=== PATIENT | male | born 2000 | race Caucasian/White ===

== ENCOUNTER 2021-04-28 20:06 | Emergency (ER) | payer BC ==
[~2021-04-28] VITALS: Ht 177.8 cm; Wt 79.4 kg
[2021-04-28] MEDS ORDERED: EPIPEN0.3 MG/0.1 IM (22:02)
[2021-04-28] MEDS ORDERED: MEDROLDOSEPACK PO (22:02)
[2021-04-28 22:22] VITALS: BP 140/90
== END 2021-04-28 22:23 | disposition home or self-care (01) ==
LOC: M.ERS 20:06
DX: R22.0 Localized swelling, mass and lump, head (principal); T78.1XXA Other adverse food reactions, not elsewhere classified, initial encounter; R06.02 Shortness of breath; Z88.1 Allergy status to other antibiotic agents; Z91.018 Allergy to other foods; Z91.010 Allergy to peanuts; X58.XXXA Exposure to other specified factors, initial encounter